=== PATIENT | female | born 1945 | race Caucasian/White ===

== ENCOUNTER → 2018-06-09 | Outpatient (CLI) | payer MEDICARE ==
[~2018-06-09] MED LIST: ACET1TAB10 PO; ALPR0.254 PO; ATEN100T PO; ATEN1TAB4 PO; ATOR20TA37 PO; CETI10TA18 PO; DOCU-131 PO; FENT-58 TP; GEMF600T4 PO; HYDR-3240 PO; HYDR-3307 PO; INSU100C5 SQ-INSULIN; LIPA1CAP45 PO; LISI5TAB7 PO; METO10TA82 PO; METO25TA35 PO; METO50TA82 PO; NITR100C PO; OMNIPAQUE 350 MG/ML, 75ML BOTTLE ONE; ONDA8TAB9 PO; SIMV40TA3 PO; TRAZ-137 PO; cholesterol med
== END | disposition home or self-care (01) ==
LOC: CFH 12:46
PROVIDERS: ATTEND Nurse Practitioner
DX: J43.2 Centrilobular emphysema (principal); R91.8 Other nonspecific abnormal finding of lung field; J98.11 Atelectasis; N28.1 Cyst of kidney, acquired; M85.88 Other specified disorders of bone density and structure, other site; F17.210 Nicotine dependence, cigarettes, uncomplicated
CPT/HCPCS: 71260; 82565; Q9967

== ENCOUNTER → 2018-06-24 | Outpatient (CLI) | payer MEDICARE ==
[~2018-06-24] MED LIST changes: -GEMF600T4 PO; +GEMF600T8 PO; -OMNIPAQUE 350 MG/ML, 75ML BOTTLE ONE
== END | disposition home or self-care (01) ==
LOC: PETCFH 13:42
PROVIDERS: ATTEND Family Medicine
DX: R91.8 Other nonspecific abnormal finding of lung field (principal)
CPT/HCPCS: 78815; A9552

== ENCOUNTER 2018-06-27 10:06 | Day surgery (SDC) | payer MEDICARE ==
[~2018-06-27] VITALS: Ht 165.1 cm; Wt 48.9 kg
[2018-06-27 11:04] VITALS: BP 110/70
[2018-06-27] MEDS ORDERED: SODIUM CHLORIDE 0.9% 1,000 ML IV SCH (11:07)
[2018-06-27] MEDS ORDERED: LIDOCAINE-MPF 1%, 5ML ONE (11:15)
[2018-06-27] MEDS ORDERED: FENTANYL PF 100 MCG/2ML ONE (11:37)
[2018-06-27] MEDS ORDERED: FLUMAZENIL 0.1 MG/1 ML, 5ML ONE (11:38)
[2018-06-27] MEDS ORDERED: MIDAZOLAM 1 MG/ML, 5ML ONE (11:38)
[2018-06-27] MEDS ORDERED: NALOXONE 1 MG/ML, 2ML ONE (11:38)
== END 2018-06-27 14:55 | disposition home or self-care (01) ==
LOC: RAD 10:06
PROVIDERS: ATTEND Family Medicine
DX: C34.92 Malignant neoplasm of unspecified part of left bronchus or lung (principal); I12.9 Hypertensive chronic kidney disease with stage 1 through stage 4 chronic kidney disease, or unspecified chronic kidney disease; N18.2 Chronic kidney disease, stage 2 (mild); F41.9 Anxiety disorder, unspecified; E78.5 Hyperlipidemia, unspecified; F17.210 Nicotine dependence, cigarettes, uncomplicated; Z90.49 Acquired absence of other specified parts of digestive tract; Z90.710 Acquired absence of both cervix and uterus; Z98.890 Other specified postprocedural states; Z98.49 Cataract extraction status, unspecified eye
CPT/HCPCS: 32405; 71045; 77012; 88305; 99156; J2250; J3010; J7030; 88341; 88342; 88360; 99157; J2310

== ENCOUNTER → 2018-06-28 | Outpatient (CLI) | payer MEDICARE | END | disposition home or self-care (01) | LOC: CFH 13:08 | PROVIDERS: ATTEND Nurse Practitioner | DX: Z12.31 Encounter for screening mammogram for malignant neoplasm of breast (principal) | CPT/HCPCS: 77067 ==

== ENCOUNTER 2018-07-05 16:27 | Outpatient (CLI) | payer MEDICARE ==
[~2018-07-05 16:27] MED LIST changes: +GADOBUTROL 7.5 MMOL/7.5 ML PFS ONE
== END 2018-07-05 23:59 | disposition home or self-care (01) ==
LOC: RAD 16:27
PROVIDERS: ATTEND Internal Medicine
DX: C34.92 Malignant neoplasm of unspecified part of left bronchus or lung (principal)
CPT/HCPCS: 70553; A9585

== ENCOUNTER 2018-07-11 13:56 | Outpatient (CLI) | payer MEDICARE ==
[~2018-07-11 13:56] MED LIST changes: -GADOBUTROL 7.5 MMOL/7.5 ML PFS ONE
== END 2018-07-11 23:59 | disposition home or self-care (01) ==
LOC: CARD 13:56
PROVIDERS: ATTEND Internal Medicine
DX: J44.9 Chronic obstructive pulmonary disease, unspecified (principal)
CPT/HCPCS: 94060; 94618; 94726; 94729

== ENCOUNTER → 2018-07-18 | Outpatient (CLI) | payer MEDICARE | END | disposition home or self-care (01) | LOC: ROC 10:44 | PROVIDERS: ATTEND Radiology Radiation Oncology | DX: C34.12 Malignant neoplasm of upper lobe, left bronchus or lung (principal) | CPT/HCPCS: G0463 ==

== ENCOUNTER 2018-07-25 12:04 | Day surgery (SDC) | payer MEDICARE ==
[~2018-07-25] VITALS: Ht 165.1 cm; Wt 50.0 kg
[2018-07-25] MEDS ORDERED: PLEASE ENTER HEIGHT AND WEIGHT MC SCH (12:30)
[2018-07-25] MEDS ORDERED: CEFAZOLIN PMX 1GM/50ML 50 ML IV ONE (12:30)
[2018-07-25 12:46] VITALS: BP 146/81
[2018-07-25] MEDS ORDERED: POTASSIUM PO (12:55)
[2018-07-25] MEDS ORDERED: SODIUM CHLORIDE 0.9% 1,000 ML IV SCH (13:00)
[2018-07-25] MEDS ORDERED: LIDOCAINE 1%, 20ML ONE (13:28)
[2018-07-25] MEDS ORDERED: FENTANYL PF 100 MCG/2ML ONE (14:15)
[2018-07-25] MEDS ORDERED: MIDAZOLAM 1 MG/ML, 5ML ONE (14:15)
[2018-07-25] MEDS ORDERED: FLUMAZENIL 0.1 MG/1 ML, 5ML ONE (14:15)
[2018-07-25] MEDS ORDERED: NALOXONE 1 MG/ML, 2ML ONE (14:16)
== END 2018-07-25 16:42 | disposition home or self-care (01) ==
LOC: OUT 12:04
PROVIDERS: ATTEND Internal Medicine Hematology & Oncology
DX: Z45.2 Encounter for adjustment and management of vascular access device (principal); C34.90 Malignant neoplasm of unspecified part of unspecified bronchus or lung; F41.9 Anxiety disorder, unspecified; J44.9 Chronic obstructive pulmonary disease, unspecified; E78.00 Pure hypercholesterolemia, unspecified; F17.200 Nicotine dependence, unspecified, uncomplicated; I10 Essential (primary) hypertension; Z87.39 Personal history of other diseases of the musculoskeletal system and connective tissue; Z90.710 Acquired absence of both cervix and uterus; Z98.890 Other specified postprocedural states
CPT/HCPCS: 36561; 77001; 99156; 99157; C1788; J0690; J1642; J2250; J3010; J3490; J7030; J2310